=== PATIENT | female | born 1970 | race African-American/Black ===

== ENCOUNTER 2016-12-29 03:25 | Observation (INO) | payer BC ==
--- NOTE | ~2016-12-29 | HP ---
History And Physical [place] [id number] [facility] [place]. [address] NAME: JAYESH STOKES : 72 STATUS : ADM Nancy PAT#: [id number] AGE: 46 ADM/REG DATE : 12/29/16 MR#: [id number] REPORT SERV DATE: 12/29/16 DICTATED BY: IBAN LEMONS DATE: 12/29/16 REPORT STATUS : Draft TRANSCRIBED BY: MODL DATE: 12/29/16 DATE OF ADMISSION: 12/29/2016 PRIMARY CARE PROVIDER: She is wishing to change to Dr. Sylvester, had previously been in between physicians and going to urgent cares and [facility]. CHIEF COMPLAINT: Awakened at 0100 hours with headache, chest pain, and heart racing. HPI: This is a pleasant, 46-year-old, -[place] female with history of long-standing hypertension, including hypertensive urgency hospitalization 03/2014. She has a history of a mildly abnormal troponin and atypical chest pain in the setting of hypertensive urgency during the hospitalization 03/2014 for which time she was evaluated by Cardiology. They did not do a stress test at this time as they thought that the symptoms were likely related to hypertensive urgency. Did do a stress test during that admission and it was considered to be normal. The patient reports that she had discontinued her atenolol and benazepril, blood pressure medications approximately 2 months ago because of dyspnea on exertion worsened and given that she was already chronically anemic and has asthma, she was concerned about being on a beta daniel. She also discontinued the benazepril because her ex- had edema with benazepril, and she decided that she should avoid LUZ MARIA inhibitors to avoid that potential reaction. Note, she had been on benazepril 20 mg daily and did not have any edema personally. She reports that she has had long-standing hypertension and has tried many medications since being diagnosed during in her early 30s. She stopped hydrochlorothiazide and wishes to avoid all medications with diuretic components in the past because of problems with needing to urinate during her busy work day and feeling she was getting dehydrated. She reports that after she stopped seeing her primary care provider and self stopped her blood pressure medications, she did go to either [facility] or a walk-in clinic. She was diagnosed with the flu approximately 2 months ago. She was started on verapamil for blood pressure, but she ran out of the verapamil a few days ago. She reports her baseline blood pressure while on atenolol 20 twice a day, benazepril 20 daily, was already systolic blood pressure 150s and she has never had good control of her blood pressure. She awakened with a headache and substernal chest pain up towards the neck and heart racing at 1 o'clock this morning. All of her symptoms resolved with blood pressure control in the emergency department. She denies any exertional component to chest pain and has not had chest pain other than with previous admission with hypertensive urgency. She reports that there is currently no exertional dyspnea. She reports after stopping the beta daniel she has been able to start Parvez and has been doing that 30 minutes at a time without having to stop. She denies any edema, paroxysmal nocturnal dyspnea or orthopnea. She has not been having headaches. She reports she is under tremendous amount of stress as a single mother with busy activities with her children. Her eldest is graduating. She denies any stroke- like symptoms with that blood pressure. She denies checking her blood pressure report. 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 She has no cuff at home. She has had no flu-like symptoms since recovering from the flu 2 months ago. History And Physical [address] [address] NAME: JAYESH STOKES : 72 STATUS : ADM Nancy PAT#: [id number] AGE: 46 ADM/REG DATE : 12/29/16 MR#: [id number] REPORT SERV DATE: 12/29/16 DICTATED BY: IBAN LEMONS DATE: 12/29/16 REPORT STATUS : Draft TRANSCRIBED BY: SHEEBA DATE: 12/29/16 PAST MEDICAL HISTORY: 1. Hypertension that is hard to manage. 2. Hypertensive urgency hospitalization, 03/2014. 3. History of atypical chest pain and mildly abnormal troponin in the setting of elevated blood pressure during admission, 03/2014. 4. Chronic anemia thought secondary to heavy menses/menorrhagia. 5. Menorrhagia this has improved recently with initiation of oral contraceptives. 6. Dyspnea on exertion felt secondary to anemia (improved at this time). 7. Asthma that is related to seasonal allergies and is doing well at this time. 8. Seasonal allergies. 9. Chronic anemia. Patient reports that she had a negative evaluation for chronic anemia and that is why it was felt secondary to heavy menses. SOCIAL HISTORY: . No tobacco. No alcohol. No illicit drug use. She consumes 1 cup of Coke daily only while at work. Otherwise, no caffeinated products. She did use over the-counter pseudoephedrine with the flu 2 months ago, but she has not used any over-the- counter products since then. I did deputy county counsel her to avoid pseudoephedrine. She is active with her 2 children and with working as a respiratory therapist at [employer]. She is able to do Parvez 30 minutes without having to stop. FAMILY HISTORY: Negative for CAD. Positive for mother with hypertension. REVIEW OF SYSTEMS: As above per HPI, all other systems reviewed and negative. ALLERGIES: NO KNOWN ALLERGIES. HOME MEDICATIONS: List reviewed and is as follows: Verapamil ER 180 mg one tablet p.o. daily. The patient ran out over 2 days ago and has not taken it since then. Advair 250 strength 1-2 inhalations b.i.d. as needed. She reports she has recently using this. Oral contraceptives, details unclear daily. PHYSICAL EXAMINATION: VITAL SIGNS: Oxygen saturation 98% on room air, most recent blood pressure 176/80, previous blood pressure 169/90, initial blood pressure in the emergency room 231/111, pulse 77 with heart rate 126 in the emergency department, height 5 feet 6 inches, weight 89.44 kg, respiratory rate 18, temperature 97.1. GENERAL: Well developed, well nourished. In no apparent distress. HEENT: Head normocephalic. No xanthelasma. Sclera clear, anicteric. Moist mucous membranes without pallor. No lymphadenopathy. No deficits noted. NECK: Trachea midline. Supple. No thyromegaly, JVD, or bruits. RESPIRATORY: Unlabored respirations. Breath sounds clear bilaterally to posterior auscultation. No wheezes, rhonchi or crackles. CARDIOVASCULAR: Regular rate and rhythm. No murmur, rub, or gallop appreciated. No chest wall tenderness to palpation. ABDOMEN: Soft, nontender, and nondistended. Active bowel sounds auscultated x4 quadrants. No organomegaly and no masses. No aortic bruit. History And Physical [place] [address] [place]. [address] NAME: JAYESH STOKES : 72 STATUS : ADM Nancy PAT#: [id number] AGE: 46 ADM/REG DATE : 12/29/16 MR#: [id number] REPORT SERV DATE: 12/29/16 DICTATED BY: IBAN LEMONS DATE: 12/29/16 REPORT STATUS : Draft TRANSCRIBED BY: MODL DATE: 12/29/16 EXTREMITIES: DP/PT and radial pulses 2+ bilaterally. No clubbing, cyanosis, or edema. SKIN: Warm, dry, intact. No rash. Normal turgor. MUSCULOSKELETAL: Moves all extremities in bed without difficulty. NEURO/PSYCH: Alert and oriented x3 with no acute distress. Affect appropriate to current situation. LABORATORY DATA: BMP: Sodium 141, potassium 3.0 (this was repleted), creatinine 0.88, glucose 102, magnesium 2.1. CBC: White blood cell count 7.2, hemoglobin 11.9, hematocrit 36.7, platelets 325. Troponin initial 0.08 at 3:30, second troponin at 7:10, 0.08 as well. LFTs were unremarkable. HCG was negative. STUDIES: Chest x-ray, no acute processes. Lungs are clear with no infiltrates or effusions seen. Heart size is normal. EKG is personally interpreted x3. First sinus tachycardia with nonspecific ST changes. Second and third EKGs, normal sinus rhythm with no ischemia. The patient denies ever having stress test or cath arteriogram. She did have a normal echocardiogram 03/2014 at [facility]. Telemetry, normal sinus rhythm. ASSESSMENT AND PLAN: 1. Hypertensive urgency with blood pressure in the emergency department 231/111. She did have associated symptoms with chest pain and headache. Her symptoms have fully resolved with blood pressure control. She ran out of verapamil a few days ago after previously self stopping atenolol and benazepril over concerns for side effects. 2. Flat troponin 0.08 x2 with no evidence of acute coronary syndrome. Cardiac risk factors include hypertension. I will plan on a nuclear stress test today for risk stratification. If there is no ischemia and it is low risk, then RN is to discharge the patient home after blood pressure control achieved (systolic blood pressure less than 180). I will add an ARB in the form of losartan 50 mg p.o. daily as patient declines LUZ MARIA inhibitors. I will restart verapamil as she reports not having any issues with that medication. I would normally wish to initiate HCTZ given she is . However, potassium was only 3.0, and she also has declined HCTZ having trouble with it in the past. I discussed for 15 minutes the importance of managing blood pressure for cardiovascular well being and stroke prevention and the seriousness of her elevated blood pressure upon arrival. She is to check her blood pressure daily, record, bring in to primary care provider. She is to follow a low-sodium diet less than 2 g daily. She is to avoid [id number] medications that raise blood pressure including pseudoephedrine. She is to discuss with her PCP the options for menorrhagia given significant hypertension (she had recently started oral contraceptives and this is not a good option in someone with hypertensive urgency). Again, she is to follow up with primary care provider in one week. She wishes to see Dr. Sylvester in one week. This will be a new physician for her. She is to call on Saturday to schedule an appointment. We will fax all records of hospitalization to Dr. Sylvester on discharge. Given that I am starting losartan and that her potassium level was low, she is to have a BMP checked in one week. Again, follow up with primary care provider. 3. Chest pain (atypical). This chest pain and mildly abnormal troponin are in the setting of hypertensive urgency and I suspect that this is a type 2 demand ischemia in the History And Physical [address] [address] NAME: JAYESH STOKES : 72 STATUS : ADM Nancy PAT#: [id number] AGE: 46 ADM/REG DATE : 12/29/16 MR#: [id number] REPORT SERV DATE: 12/29/16 DICTATED BY: IBAN LEMONS DATE: 12/29/16 REPORT STATUS : Draft TRANSCRIBED BY: SHEEBA DATE: 12/29/16 setting of the blood pressure. She does not have any chest pain with exertion. 4. Hypertension. Please see above. 5. Chronic anemia. The patient reports she has undergone an evaluation in the past and was told she did not have any sickle cell anemia or other etiologies. She reports she was told the chronic anemia was secondary to heavy menses. She takes [id number] iron supplements. Again, she is to follow up with primary care. Her H and H are improved over last admission at 11.9 and 36.7. 6. Asthma. I will resume her home Advair. She is not having any exacerbation at this time. Chest x-ray is clear. Further recommendations are forthcoming for rounding online publisher for [facility] who will see the patient down in the stress testing area. JOSE/SHEEBA Iban Lemons NP / [id number] CC: Iban Lemons NP
[~2016-12-29 03:25] MED LIST: ASABAYER PO; ATEN50 PO; INTEGRA PLUS C1 EACH PO; MULTIVITAMI1 PO; PRIN10 PO
[2016-12-29 03:47] LABS: BASOPHILS 0.1 %; BASOPHILS ABSOLUTE 0.01 10/3/uL (0.0-0.16); EOSINOPHILS 1.9 %; EOSINOPHILS ABSOLUTE 0.14 10/3/uL (0.0-0.53); ER CBC TAT 0 Hrs 05 Mins; IMMATURE GRANULOCYTES 0.1 %; IMMATURE GRANULOCYTES ABSOLUTE 0.01 10/3/uL (0.0-0.11); LYMPHOCYTES ABSOLUTE 2.37 10/3/uL (0.67-4.30); MEAN PLATELET VOLUME 11.3 fL (9.2-13.0); MONOCYTES 7.7 %; MONOCYTES ABSOLUTE 0.55 10/3/uL (0.21-1.20); NEUTROPHILS 57.2 %; RED CELL COUNT 4.26 10/6/uL (4.0-5.6); WHITE BLOOD CELLS 7.2 10/3/uL (4.5-10.5)
[2016-12-29 03:50] LABS: HEMATOCRIT 36.7 % (36.0-48.0); HEMOGLOBIN 11.9 g/dL (12.0-16.0); MANUAL DIFF NO %; MEAN CORPUS HGB CONC 32.4 g/dL (32.0-36.0); MEAN CORPUSCULAR HEMOGLOB 27.9 pg (26.0-34.0); MEAN CORPUSCULAR VOLUME 86.2 fL (80-100); PLATELET COUNT 325 10/3/uL (150-400); RBC DISTRIBUTION WIDTH 14.9 % (12.0-16.0)
[2016-12-29 03:56] LABS: PARTIAL THROMBO TIME 25.4 SEC (22.5-37.2); PROTIME (NOT ORD) 13.2 SEC (12.0-14.5)
[2016-12-29 04:04] LABS: BUN (BLOOD UREA NITROGEN) 13 MG/DL (6-23); CALCIUM, SERUM 8.7 MG/DL (8.5-10.4); CHLORIDE, SERUM 103 MMOL/L (96-112); CO2 (CARBON DIOXIDE) 30 MMOL/L (24-34); CREATININE 0.88 MG/DL (0.55-1.02); GFR AFRICAN AMERICAN 92 ML/MIN (>=60); GFR NON AFRICAN AMERICAN 79 ML/MIN (>=60); GLUCOSE, SERUM 102 MG/DL (60-99); SGOT(AST) 14 U/L (5-40); SGPT(ALT) 19 U/L (5-65); SODIUM, SERUM 141 MMOL/L (135-148); TOTAL BILIRUBIN 0.2 MG/DL (0-1.2); TOTAL PROTEIN 8.2 G/DL (6.0-8.5)
[2016-12-29 04:07] LABS: ALKALINE PHOSPHATASE 77 U/L (45-117); DIRECT BILIRUBIN < 0.1 MG/DL (0.0-0.4); INDIRECT BILIRUBIN(NOT ORDER) 0.1 MG/DL (0.1-0.9)
[2016-12-29 04:08] LABS: CHEST PAIN PROFILE TAT 0 Hrs 26 Mins; TROPONIN I 0.08 NG/ML (<0.05)
[2016-12-29 04:33] LABS: D-DIMER QUANTITATIVE < 0.27 ug/mLFEU (< 0.50)
[2016-12-29] MEDS ORDERED: ISOPTIN SR180 MG (06:23)
[2016-12-29] MEDS ORDERED: COZ50 PO (15:10)
== END 2016-12-29 15:37 | disposition home or self-care (01) ==
LOC: ER 03:25 → CDU1 06:17
PROVIDERS: Specialist
DX: I16.0 Hypertensive urgency (principal); I10 Essential (primary) hypertension; R07.89 Other chest pain; D64.9 Anemia, unspecified; J45.909 Unspecified asthma, uncomplicated
CPT/HCPCS: 36415; 71010; 78452; 80048; 80076; 83735; 84484; 84703; 85025; 85379; 85610; 85730; 86850; 86900; 86901; 93005; 93017; 96374; 99285; A9270-GY; A9502; G0378; J0360